=== PATIENT | male | born 1960 | race Caucasian/White ===

== ENCOUNTER 2023-03-10 19:28 | Emergency (ER) | payer BC ==
[~2023-03-10] VITALS: Ht 182.9 cm; Wt 75.0 kg
[2023-03-10 19:41] VITALS: TEMP 98.7
[2023-03-10] MEDS ORDERED: LISI10TA27 PO (21:30)
[2023-03-10 21:52] VITALS: BP 152/86; PULSE 72; RESP 16; O2SAT 99
== END 2023-03-10 21:56 | disposition home or self-care (01) ==
LOC: ER 19:30
DX: G57.83 Other specified mononeuropathies of bilateral lower limbs (principal); I10 Essential (primary) hypertension; Z88.1 Allergy status to other antibiotic agents; Z79.899 Other long term (current) drug therapy
CPT/HCPCS: 82948; 99283